=== PATIENT | male | born 1985 | race Caucasian/White ===

== ENCOUNTER 2017-03-01 11:53 | Emergency (ER) | payer MEDICAID ==
[2017-03-01 14:27] VITALS: BP 115/79
== END 2017-03-01 14:27 | disposition home or self-care (01) ==
LOC: ED 11:53
DX: S33.5XXA Sprain of ligaments of lumbar spine, initial encounter (principal); V49.40XA Driver injured in collision with unspecified motor vehicles in traffic accident, initial encounter; Y93.89 Activity, other specified; Y99.8 Other external cause status; Y92.89 Other specified places as the place of occurrence of the external cause